=== PATIENT | male | born 1990 | race Hispanic/Latino ===

== ENCOUNTER 2024-05-04 16:11 | Emergency (ER) | payer SELFPAY ==
[~2024-05-04] VITALS: Ht 175.3 cm; Wt 91.2 kg
[2024-05-04 17:10] VITALS: PULSE 76; RESP 20; TEMP 98.1
[2024-05-04] MEDS: LIDOCAINE HCL 2% 2 ML AMP INJ ONE (17:54)
[2024-05-04] MEDS ORDERED: LIDOCAINE HCL 2% LOCAL 20 ML VIAL ONE (18:17)
[2024-05-04] MEDS ORDERED: CEPHALEXIN500 MG PO (19:11)
[2024-05-05 07:12] VITALS: BP 155/104; PULSE 76; RESP 18; TEMP 98.1; O2SAT 99
== END 2024-05-04 19:20 | disposition home or self-care (01) ==
LOC: FSED 17:08
DX: L02.212 Cutaneous abscess of back [any part, except buttock and flank] (principal); I10 Essential (primary) hypertension
CPT/HCPCS: 10061; 99283; J2003 ×2

== ENCOUNTER 2024-05-06 18:50 | Emergency (ER) | payer SELFPAY ==
[~2024-05-06] VITALS: Ht 175.3 cm; Wt 86.2 kg
[~2024-05-06 18:50] MED LIST: CEPHALEXIN500 MG PO
[2024-05-06 18:55] VITALS: PULSE 65; RESP 18; TEMP 98.3
[2024-05-06 19:25] VITALS: BP 160/112; PULSE 65; RESP 18; TEMP 98.9; O2SAT 100
== END 2024-05-06 19:16 | disposition home or self-care (01) ==
LOC: FSED 19:00
DX: Z48.01 Encounter for change or removal of surgical wound dressing (principal)
CPT/HCPCS: 99283